=== PATIENT | female | born 1990 | race African-American/Black ===

== ENCOUNTER 2020-06-23 08:16 | Emergency (ER) | payer SELFPAY ==
[2020-06-23] MEDS ORDERED: Acetaminophen/Codeine 30-300mg Tablet ONE (08:44)
[2020-06-23] MEDS ORDERED: Cyclobenzaprine 10 MG TAB ONE (08:44)
== END 2020-06-23 09:35 | disposition home or self-care (01) ==
LOC: NAV ERS 08:16
DX: S46.002A Unspecified injury of muscle(s) and tendon(s) of the rotator cuff of left shoulder, initial encounter (principal); S63.501A Unspecified sprain of right wrist, initial encounter; J45.909 Unspecified asthma, uncomplicated; F17.210 Nicotine dependence, cigarettes, uncomplicated; X50.1XXA Overexertion from prolonged static or awkward postures, initial encounter

== ENCOUNTER 2021-02-26 00:58 | Emergency (ER) | payer SELFPAY ==
[2021-02-26] MEDS ORDERED: Boostrix 0.5 ML (Tdap) VIAL ONE (01:09)
[2021-02-26] MEDS ORDERED: Bacitracin 1 PK ONE (01:09)
== END 2021-02-26 01:30 | disposition home or self-care (01) ==
LOC: NAV ERS 00:58
DX: S61.112A Laceration without foreign body of left thumb with damage to nail, initial encounter (principal); Z23 Encounter for immunization; W45.8XXA Other foreign body or object entering through skin, initial encounter
CPT/HCPCS: 90471; 90715

== ENCOUNTER 2023-01-04 16:24 | Emergency (ER) | payer SELFPAY ==
[2023-01-04] MEDS ORDERED: Naproxen 500 MG TAB ONE (16:55)
== END 2023-01-04 17:05 | disposition home or self-care (01) ==
LOC: NAV ERS 16:24
DX: M62.838 Other muscle spasm (principal); F17.290 Nicotine dependence, other tobacco product, uncomplicated
CPT/HCPCS: 99283

== ENCOUNTER 2023-09-20 09:19 | Emergency (ER) | payer SELFPAY ==
[2023-09-20] MEDS ORDERED: Naproxen 500 MG TAB ONE (10:24)
[2023-09-20 11:12] LABS: Influenza A by NAA Not Detected (NotDetected); Influenza B by NAA Not Detected (NotDetected); SARS-CoV-2 NAA Rapid Test Not Detected (NotDetected)
== END 2023-09-20 11:28 | disposition home or self-care (01) ==
LOC: NAV ERS 09:19
DX: B34.9 Viral infection, unspecified (principal); J06.9 Acute upper respiratory infection, unspecified; F17.290 Nicotine dependence, other tobacco product, uncomplicated
CPT/HCPCS: 87081; 87430; 99283

== ENCOUNTER 2024-01-18 06:46 | Emergency (ER) | payer SELFPAY ==
[2024-01-18] MEDS ORDERED: Dexamethasone 4 mg/ml Vial ONE (07:28)
[2024-01-18] MEDS ORDERED: Ketorolac Tromethamine 60 MG/2 ML VIAL ONE (07:28)
[2024-01-18] MEDS ORDERED: Neomycin/Polymyxin/HC Otic Solution 10 ML BOT L EAR SCH (08:00)
== END 2024-01-18 08:05 | disposition home or self-care (01) ==
LOC: NAV ERS 06:46
DX: H60.92 Unspecified otitis externa, left ear (principal); F17.290 Nicotine dependence, other tobacco product, uncomplicated
CPT/HCPCS: 96372; 99282; J1100; J1885

== ENCOUNTER 2025-01-29 06:10 | Emergency (ER) | payer SELFPAY ==
[2025-01-29] MEDS ORDERED: Methocarbamol 500 MG TAB ONE (06:50)
== END 2025-01-29 07:02 | disposition home or self-care (01) ==
LOC: NAV ERS 06:10
DX: M25.512 Pain in left shoulder (principal); G89.29 Other chronic pain; Z87.891 Personal history of nicotine dependence
CPT/HCPCS: 99283